=== PATIENT | female | born 1945 | race Caucasian/White ===

== ENCOUNTER 2017-12-21 09:37 | Inpatient (IN) ==
[2017-12-21] MEDS ORDERED: INFLUENZA VIRUS VACCINE 0.5 ML SYRINGE IM ONE (11:33)
[2017-12-21] MEDS ORDERED: LACTULOSE 20 GM/30 ML UDCUP PO PRN (12:52)
[2017-12-21] MEDS ORDERED: MAGNESIUM SULF RIDER 4 GM in PREMIX 1 EACH IV PRN (12:52)
[2017-12-21] MEDS ORDERED: MORPHINE 4 MG/1 ML VIAL IV PRN (12:52)
[2017-12-21] MEDS ORDERED: POTASSIUM CHLORIDE 20 MEQ TABLET PO PRN (12:52)
[2017-12-21] MEDS ORDERED: ALUM/MAG/SIMETH/LIDO VISC 1:1 30 ML BOTTLE PO PRN (12:52)
[2017-12-21] MEDS ORDERED: ONDANSETRON 4 MG/2 ML VIAL IV PRN (12:52)
[2017-12-21] MEDS ORDERED: DOCUSATE SODIUM 100 MG CAPSULE PO PRN (12:52)
[2017-12-21] MEDS ORDERED: MAGNESIUM SULF RIDER 2 GM in PREMIX 1 EACH IV PRN (12:52)
[2017-12-21] MEDS ORDERED: busPIRone 5 MG TABLET PO PRN (13:19)
[2017-12-21 13:43] LABS: Basophils % 0.4 % (0.0-0.8); Hematocrit 35.4 VOL% (35.7-47.0); Hemoglobin 11.7 GM/DL (12.0-16.0); Immature Granulocytes % 0.3 %; Immature Granulocytes Absolute 0.03 #; Lymphocytes # 1.4 10*3/uL (1.4-4.0); Lymphocytes % 14.5 % (21.3-54.2); Mean Corpuscular HGB Conc 33.1 GM/DL (32-36); Mean Corpuscular Hemoglobin 30 PG (27-34); Mean Corpuscular Volume 89.2 FL (87-102); Mean Platelet Volume 11.6 FL (9.6-12.0); Monocytes # 0.6 10*3/uL (0.11-0.8); Monocytes % 6.8 % (1.7-12.7); Neutrophils # 7.4 10*3/uL (1.4-7.4); Platelet Count 226 T/CUMM (130-400); Red Blood Count 3.97 MC/CUMM (3.8-5.5); Red Cell Distribution Width 13.5 % (9.3-17.3); White Blood Count 9.4 T/CUMM (4-12)
[2017-12-21 14:18] LABS: Calcium 8.1 MG/DL (8.5-10.1)
[2017-12-21 14:19] LABS: Osmolality,Calculated 279.5 MOS/KG (273-304); Potassium 3.1 MMOL/L (3.5-5.1); Thyroid Stimulating Hormone 0.805 uIU/ml (0.358-3.74)
[2017-12-21] MEDS ORDERED: DILTIAZEM 100 MG VIAL.ADD IV ONE (15:06)
[2017-12-21] MEDS ORDERED: SODIUM CHLORIDE 0.9% 100 ML IV ONE (15:06)
[2017-12-21] MEDS: DILTIAZEM INJ 100 MG in SODIUM CHLORIDE 0.9% 100 ML IV SCH (15:51)
[2017-12-21] MEDS ORDERED: ENOXAPARIN 40 MG/0.4 ML SYRINGE SUBCUT SCH ×2 (17:00→21:00)
[2017-12-21] MEDS: traZODone 50 MG TABLET PO SCH (20:49)
[2017-12-21] MEDS: ACETAMINOPHEN 325 MG TABLET PO PRN (20:57)
[2017-12-22] MEDS: DILTIAZEM INJ 100 MG in SODIUM CHLORIDE 0.9% 100 ML IV SCH ×3 (01:48→22:10)
[2017-12-22 05:17] LABS: Basophils % 0.5 % (0.0-0.8); Eosinophils % 0.5 % (0.00-10.9); Hematocrit 34.9 VOL% (35.7-47.0); Hemoglobin 11.6 GM/DL (12.0-16.0); Immature Granulocytes % 0.5 %; Immature Granulocytes Absolute 0.04 #; Lymphocytes # 1.1 10*3/uL (1.4-4.0); Lymphocytes % 13.1 % (21.3-54.2); Mean Corpuscular HGB Conc 33.2 GM/DL (32-36); Mean Corpuscular Hemoglobin 29 PG (27-34); Mean Corpuscular Volume 87.9 FL (87-102); Mean Platelet Volume 12.1 FL (9.6-12.0); Monocytes # 0.8 10*3/uL (0.11-0.8); Monocytes % 9.4 % (1.7-12.7); Neutrophils # 6.5 10*3/uL (1.4-7.4); Platelet Count 210 T/CUMM (130-400); Red Blood Count 3.97 MC/CUMM (3.8-5.5); Red Cell Distribution Width 13.5 % (9.3-17.3); White Blood Count 8.5 T/CUMM (4-12)
[2017-12-22 05:33] LABS: Calcium 8.3 MG/DL (8.5-10.1); Osmolality,Calculated 279.5 MOS/KG (273-304); Potassium 3.1 MMOL/L (3.5-5.1); Risk Ratio 2.6; VLDL CHOLESTEROL 9.2 MG/DL
[2017-12-22] MEDS: LEVOTHYROXINE 50 MCG TABLET PO SCH (06:10)
[2017-12-22] MEDS: POTASSIUM CHLORIDE 20 MEQ TABLET PO PRN (06:10)
[2017-12-22] MEDS ORDERED: POTASSIUM CHLORIDE 20 MEQ TABLET PO PRN (07:12)
[2017-12-22] MEDS: DULoxetine 30 MG CAPSULE PO SCH (09:00)
[2017-12-22] MEDS ORDERED: hydroCHLOROthiazide 25 MG TABLET PO SCH (09:00)
[2017-12-22] MEDS: ASPIRIN EC 81 MG TABLET PO SCH (09:00)
[2017-12-22] MEDS: MAGNESIUM CHLORIDE 64 MG TABLET PO SCH (09:00)
[2017-12-22] MEDS: PANTOPRAZOLE 40 MG TABLET PO SCH (09:00)
[2017-12-22] MEDS: POTASSIUM CHLORIDE 20 MEQ TABLET PO SCH (09:01)
[2017-12-22] MEDS: cefTRIAXone 2,000 MG in SYRINGE 1 EACH IV SCH (09:01)
[2017-12-22 10:46] LABS: Apearance,Urine CLEAR (Clear); Bilirubin,Urine Negative (Negative); Blood, Urine Negative (Negative); Glucose,Urine (UA) Negative (Negative); Ketones,Urine 20 mg/dL (Negative); Nitrite,Urine Negative (Negative); Protein,Urine 30 MG/DL; RBC,Urine <1 /HPF (0-4); Squamous Epithelial Cell,Urine Occasional /HPF (0-10); Urine Color Amber (Yellow); Urine Specific Gravity 1.027 (1.001-1.035); WBC,Urine 4 /HPF (0-6)
[2017-12-22] MEDS ORDERED: ENOXAPARIN 100 MG/ML SYRINGE SUBCUT SCH (15:00)
[2017-12-22] MEDS ORDERED: ENOXAPARIN 40 MG/0.4 ML SYRINGE SUBCUT SCH (16:00)
[2017-12-22] MEDS: traZODone 50 MG TABLET PO SCH (20:02)
[2017-12-22] MEDS: FLECAINIDE 50 MG TABLET PO SCH (20:03)
[2017-12-22] MEDS: DILTIAZEM CD 240 MG CAPSULE PO SCH (20:03)
[2017-12-22] MEDS: APIXABAN 5 MG TABLET PO SCH (20:03)
[2017-12-22] MEDS: ACETAMINOPHEN 325 MG TABLET PO PRN (20:18)
[2017-12-23] MEDS: LEVOTHYROXINE 50 MCG TABLET PO SCH (06:11)
[2017-12-23 06:43] LABS: Basophils % 0.5 % (0.0-0.8); Eosinophils # 0.1 10*3/uL (0.0-0.87); Eosinophils % 1.3 % (0.00-10.9); Hemoglobin 11.5 GM/DL (12.0-16.0); Immature Granulocytes % 0.3 %; Immature Granulocytes Absolute 0.02 #; Lymphocytes # 1.2 10*3/uL (1.4-4.0); Lymphocytes % 14.7 % (21.3-54.2); Mean Corpuscular HGB Conc 32.9 GM/DL (32-36); Mean Corpuscular Hemoglobin 29 PG (27-34); Mean Corpuscular Volume 88.6 FL (87-102); Mean Platelet Volume 14.1 FL (9.6-12.0); Monocytes # 0.6 10*3/uL (0.11-0.8); Monocytes % 7.9 % (1.7-12.7); Neutrophils # 5.9 10*3/uL (1.4-7.4); Neutrophils % 75.3 % (38.7-73.9); Platelet Count 193 T/CUMM (130-400); Red Blood Count 3.95 MC/CUMM (3.8-5.5); Red Cell Distribution Width 13.5 % (9.3-17.3); White Blood Count 7.8 T/CUMM (4-12)
[2017-12-23 07:07] LABS: Platelet Estimate Normal
[2017-12-23 07:08] LABS: Atypical Lymphocytes Few
[2017-12-23 07:11] LABS: Osmolality,Calculated 277.5 MOS/KG (273-304); Potassium 4.2 MMOL/L (3.5-5.1)
[2017-12-23] MEDS: DULoxetine 30 MG CAPSULE PO SCH (09:08)
[2017-12-23] MEDS: FLECAINIDE 50 MG TABLET PO SCH ×2 (09:08→21:39)
[2017-12-23] MEDS: PANTOPRAZOLE 40 MG TABLET PO SCH (09:08)
[2017-12-23] MEDS: MAGNESIUM CHLORIDE 64 MG TABLET PO SCH (09:08)
[2017-12-23] MEDS: APIXABAN 5 MG TABLET PO SCH ×2 (09:08→21:40)
[2017-12-23] MEDS: DILTIAZEM CD 240 MG CAPSULE PO SCH ×2 (09:08→21:39)
[2017-12-23] MEDS: POTASSIUM CHLORIDE 20 MEQ TABLET PO SCH (09:08)
[2017-12-23] MEDS: ASPIRIN EC 81 MG TABLET PO SCH (09:09)
[2017-12-23] MEDS ORDERED: FUROSEMIDE 40 MG/4 ML VIAL ONE (11:12)
[2017-12-23] MEDS: ALBUTEROL/IPRATROPIUM 3 ML NEB RESP TX SCH ×4 (11:15→23:13)
[2017-12-23] MEDS: cefTRIAXone 2,000 MG in SYRINGE 1 EACH IV SCH (12:58)
[2017-12-23] MEDS: FUROSEMIDE 40 MG/4 ML VIAL IV SCH ×2 (13:42→16:37)
[2017-12-23] MEDS: DILTIAZEM INJ 100 MG in SODIUM CHLORIDE 0.9% 100 ML IV SCH (15:23)
[2017-12-23] MEDS: LISINOPRIL 10 MG TABLET PO SCH (16:37)
[2017-12-23] MEDS: traZODone 50 MG TABLET PO SCH (21:40)
[2017-12-24] MEDS: ALBUTEROL/IPRATROPIUM 3 ML NEB RESP TX SCH ×2 (03:15→07:43)
[2017-12-24 05:44] LABS: Basophils % 0.3 % (0.0-0.8); Eosinophils # 0.1 10*3/uL (0.0-0.87); Eosinophils % 0.5 % (0.00-10.9); Hematocrit 35.9 VOL% (35.7-47.0); Hemoglobin 11.8 GM/DL (12.0-16.0); Immature Granulocytes % 0.4 %; Immature Granulocytes Absolute 0.04 #; Lymphocytes # 1.6 10*3/uL (1.4-4.0); Lymphocytes % 17.6 % (21.3-54.2); Mean Corpuscular HGB Conc 32.9 GM/DL (32-36); Mean Corpuscular Hemoglobin 29 PG (27-34); Mean Corpuscular Volume 88.2 FL (87-102); Monocytes # 0.8 10*3/uL (0.11-0.8); Monocytes % 8.8 % (1.7-12.7); Neutrophils # 6.6 10*3/uL (1.4-7.4); Neutrophils % 72.4 % (38.7-73.9); Platelet Count 271 T/CUMM (130-400); Red Blood Count 4.07 MC/CUMM (3.8-5.5); Red Cell Distribution Width 13.3 % (9.3-17.3); White Blood Count 9.2 T/CUMM (4-12)
[2017-12-24 05:58] LABS: Calcium 8.1 MG/DL (8.5-10.1); Osmolality,Calculated 276.7 MOS/KG (273-304); Potassium 2.9 MMOL/L (3.5-5.1)
[2017-12-24] MEDS: POTASSIUM CHLORIDE 20 MEQ TABLET PO PRN (06:15)
[2017-12-24] MEDS: LEVOTHYROXINE 50 MCG TABLET PO SCH (06:16)
[2017-12-24] MEDS ORDERED: POTASSIUM CHLORIDE RIDER 100 ML IV ONE (07:27)
[2017-12-24] MEDS ORDERED: AMIODARONE INJ 450 MG in DEXTROSE 5% 241 ML IV SCH (07:30)
[2017-12-24] MEDS: POTASSIUM CHLORIDE RIDER 10 MEQ in PREMIX 1 EACH IV PRN (07:35)
[2017-12-24] MEDS: ASCORBIC ACID 500 MG TABLET PO SCH (08:33)
[2017-12-24] MEDS: DULoxetine 30 MG CAPSULE PO SCH (08:33)
[2017-12-24] MEDS: PANTOPRAZOLE 40 MG TABLET PO SCH (08:33)
[2017-12-24] MEDS: MAGNESIUM CHLORIDE 64 MG TABLET PO SCH (08:33)
[2017-12-24] MEDS: FUROSEMIDE 40 MG/4 ML VIAL IV SCH (08:33)
[2017-12-24] MEDS: AMIODARONE INJ 150 MG in DEXTROSE 5% 100 ML IV ONE ×2 (08:34→09:02)
[2017-12-24] MEDS: cefTRIAXone 2,000 MG in SYRINGE 1 EACH IV SCH (08:34)
[2017-12-24] MEDS: ASPIRIN EC 81 MG TABLET PO SCH (08:34)
[2017-12-24] MEDS: LISINOPRIL 10 MG TABLET PO SCH (08:34)
[2017-12-24] MEDS: APIXABAN 5 MG TABLET PO SCH ×2 (08:34→21:24)
[2017-12-24] MEDS: DILTIAZEM CD 240 MG CAPSULE PO SCH ×2 (08:34→21:24)
[2017-12-24] MEDS ORDERED: POTASSIUM CHLORIDE 20 MEQ TABLET PO ONE (08:45)
[2017-12-24] MEDS ORDERED: FLECAINIDE 100 MG TABLET PO SCH (09:00)
[2017-12-24] MEDS ORDERED: POTASSIUM CHLORIDE 20 MEQ TABLET PO SCH (09:00)
[2017-12-24] MEDS: FUROSEMIDE 40 MG TABLET PO SCH (09:20)
[2017-12-24] MEDS ORDERED: PROPOFOL 200 MG/20 ML VIAL IV ONE (10:57)
[2017-12-24] MEDS ORDERED: fentaNYL 100 MCG/2 ML VIAL ONE (10:57)
[2017-12-24] MEDS: AMIODARONE INJ 450 MG in DEXTROSE 5% 241 ML IV SCH ×2 (15:00→19:18)
[2017-12-24] MEDS: DILTIAZEM INJ 100 MG in SODIUM CHLORIDE 0.9% 100 ML IV SCH (15:54)
[2017-12-24] MEDS: traZODone 50 MG TABLET PO SCH (21:23)
[2017-12-24] MEDS: CARVEDILOL 3.125 MG TABLET PO SCH (21:24)
[2017-12-25] MEDS ORDERED: diphenhydrAMINE 50 MG/1 ML VIAL IV PRN (00:07)
[2017-12-25 06:05] LABS: Osmolality,Calculated 276.8 MOS/KG (273-304); Potassium 3.8 MMOL/L (3.5-5.1)
[2017-12-25] MEDS: MAGNESIUM CHLORIDE 64 MG TABLET PO SCH (08:07)
[2017-12-25] MEDS: PANTOPRAZOLE 40 MG TABLET PO SCH (08:07)
[2017-12-25] MEDS: LEVOTHYROXINE 50 MCG TABLET PO SCH (08:07)
[2017-12-25] MEDS: DULoxetine 30 MG CAPSULE PO SCH (08:07)
[2017-12-25] MEDS: ASCORBIC ACID 500 MG TABLET PO SCH (08:07)
[2017-12-25] MEDS: ASPIRIN EC 81 MG TABLET PO SCH (08:08)
[2017-12-25] MEDS: CARVEDILOL 3.125 MG TABLET PO SCH ×2 (08:08→20:36)
[2017-12-25] MEDS: DILTIAZEM CD 240 MG CAPSULE PO SCH ×2 (08:08→20:38)
[2017-12-25] MEDS: APIXABAN 5 MG TABLET PO SCH ×2 (08:08→20:37)
[2017-12-25] MEDS: cefTRIAXone 2,000 MG in SYRINGE 1 EACH IV SCH (08:08)
[2017-12-25] MEDS: POTASSIUM CHLORIDE 20 MEQ TABLET PO SCH (08:08)
[2017-12-25] MEDS: LISINOPRIL 10 MG TABLET PO SCH (08:08)
[2017-12-25] MEDS: SODIUM CHLORIDE 0.9% 1,000 ML IV SCH (08:43)
[2017-12-25] MEDS ORDERED: BENZOCAINE 20% SPRAY 57 GM CAN TOP PRN (11:17)
[2017-12-25] MEDS ORDERED: HYDROCORTISONE 2.5% CREAM 30 GM TUBE TOP PRN (11:20)
[2017-12-25] MEDS ORDERED: PROPOFOL 200 MG/20 ML VIAL IV ONE (12:03)
[2017-12-25] MEDS ORDERED: fentaNYL 100 MCG/2 ML VIAL ONE (12:03)
[2017-12-25] MEDS ORDERED: ETOMIDATE 40 MG/20 ML VIAL IV ONE (12:04)
[2017-12-25] MEDS: FUROSEMIDE 40 MG TABLET PO SCH (12:38)
[2017-12-25] MEDS: AMIODARONE 200 MG TABLET PO SCH ×2 (12:38→20:37)
[2017-12-25] MEDS: metOLazone 2.5 MG TABLET PO SCH (15:12)
[2017-12-25] MEDS: DILTIAZEM INJ 100 MG in SODIUM CHLORIDE 0.9% 100 ML IV SCH (16:45)
[2017-12-25] MEDS ORDERED: AMIODARONE 450 MG/9 ML VIAL IV ONE (17:11)
[2017-12-25] MEDS ORDERED: AMIODARONE INJ 450 MG in DEXTROSE 5% 241 ML IV SCH ×2 (17:30→23:30)
[2017-12-25] MEDS: traZODone 50 MG TABLET PO SCH (20:37)
[2017-12-26 05:05] LABS: Calcium 8.3 MG/DL (8.5-10.1); Osmolality,Calculated 272.1 MOS/KG (273-304); Potassium 2.9 MMOL/L (3.5-5.1)
[2017-12-26] MEDS ORDERED: POTASSIUM CHLORIDE RIDER 10 MEQ in PREMIX 1 EACH IV PRN (05:43)
[2017-12-26] MEDS: POTASSIUM CHLORIDE 20 MEQ TABLET PO PRN ×2 (06:22→14:41)
[2017-12-26] MEDS: POTASSIUM CHLORIDE RIDER 10 MEQ in PREMIX 1 EACH IV PRN (06:44)
[2017-12-26] MEDS: SODIUM CHLORIDE 0.9% 1,000 ML IV SCH (08:09)
[2017-12-26] MEDS: metOLazone 2.5 MG TABLET PO SCH (09:53)
[2017-12-26] MEDS: LEVOTHYROXINE 50 MCG TABLET PO SCH (09:54)
[2017-12-26] MEDS: DULoxetine 30 MG CAPSULE PO SCH (09:54)
[2017-12-26] MEDS: MAGNESIUM CHLORIDE 64 MG TABLET PO SCH (09:54)
[2017-12-26] MEDS: DILTIAZEM CD 240 MG CAPSULE PO SCH (09:54)
[2017-12-26] MEDS: FUROSEMIDE 40 MG TABLET PO SCH (09:54)
[2017-12-26] MEDS: PANTOPRAZOLE 40 MG TABLET PO SCH (09:54)
[2017-12-26] MEDS: ASPIRIN EC 81 MG TABLET PO SCH (09:55)
[2017-12-26] MEDS: CARVEDILOL 3.125 MG TABLET PO SCH (09:55)
[2017-12-26] MEDS: LISINOPRIL 10 MG TABLET PO SCH (09:55)
[2017-12-26] MEDS: POTASSIUM CHLORIDE 20 MEQ TABLET PO SCH (09:55)
[2017-12-26] MEDS: APIXABAN 5 MG TABLET PO SCH (09:55)
[2017-12-26] MEDS: ASCORBIC ACID 500 MG TABLET PO SCH (09:55)
[2017-12-26] MEDS: AMIODARONE 200 MG TABLET PO SCH (09:55)
[2017-12-26] MEDS: cefTRIAXone 2,000 MG in SYRINGE 1 EACH IV SCH (09:56)
[2017-12-26 11:44] VITALS: BP 149/70
[2017-12-26] MEDS: DILTIAZEM INJ 100 MG in SODIUM CHLORIDE 0.9% 100 ML IV SCH (14:36)
[2017-12-26 15:21] LABS: Potassium 3.8 MMOL/L (3.5-5.1)
== END 2017-12-26 16:40 | disposition home or self-care (01) | DRG 308 ==
LOC: N.TELEN → SUATTDRO 11:07
PROVIDERS: ADMIT Internal Medicine; ATTEND Hospitalist